=== PATIENT | male | born 1950 | race African-American/Black ===

== ENCOUNTER → 2016-08-25 | Outpatient (CLI) | payer MEDICARE ==
[~2016-08-25] MED LIST: AMIT25TA PO; AMLO10TA2 PO; CYCL10TA2 PO; DOCU100T5 PO; DOCU240C25 PO; FLUT9.9S NS; LISI-334 PO; OXYC-250 PO; PROAIR HFA8.5 GM INH
== END | disposition home or self-care (01) ==
LOC: SURGPAT 14:59
PROVIDERS: ATTEND Neurological Surgery
DX: Z01.818 Encounter for other preprocedural examination (principal)
CPT/HCPCS: 87641

== ENCOUNTER → 2016-08-28 | Outpatient (CLI) | payer MEDICARE ==
[2016-08-28 11:52] LABS: ALBUMIN 3.8 g/dL (3.4-5.0); ALBUMIN/GLOBULIN RATIO 0.8 (1.0-1.7); CALCIUM 9.4 mg/dL (8.5-10.1); CREATININE 1.4 mg/dL (0.7-1.3); GFR 61.9; POTASSIUM 4.6 mmol/L (3.5-5.1); TOTAL BILIRUBIN 0.4 mg/dL (0.2-1.0); TOTAL PROTEIN 8.5 g/dL (6.4-8.2)
[2016-08-28 11:56] LABS: BASO # 0.1 x10^3/uL (0.0-0.2); BASO % 1 % (0-3); EOS % 16 % (0-3); HEMATOCRIT 43.6 % (39.0-53.0); HEMOGLOBIN 14.3 g/dL (13.0-17.5); LYMPH # 2.2 x10^3/uL (1.0-4.8); LYMPH % 27 % (24-48); MEAN CORPUSCULAR HEMOGLOBIN 32 pg (25-35); MEAN CORPUSCULAR HGB CONC 33 g/dL (31-37); MEAN CORPUSCULAR VOLUME 98 fL (79-100); MONO % 10 % (0-9); NEUT % 46 % (31-73); PLATELET COUNT 226 x10^3/uL (140-400); RED BLOOD COUNT 4.47 x10^6/uL (4.30-5.70); RED CELL DISTRIBUTION WIDTH 13.7 % (11.5-14.5)
[2016-08-28 13:30] LABS: % BASOS 1 % (0-3); % EOS 15 % (0-5); PLT ESTIMATE ADEQUATE (ADEQUATE)
[2016-08-28 13:31] LABS: OVALOCYTES FEW
== END | disposition home or self-care (01) ==
LOC: LAB 11:11
PROVIDERS: ATTEND Neurological Surgery
DX: M48.02 Spinal stenosis, cervical region (principal)
CPT/HCPCS: 36415; 80053; 85007; 85027

== ENCOUNTER 2016-09-01 07:21 | Inpatient (IN) | payer MEDICARE ==
[2016-09-01] VITALS (10 sets, daily range): BP systolic 116–134; BP diastolic 66–83
[~2016-09-01] VITALS: Ht 182.9 cm; Wt 102.1 kg
[~2016-09-01 07:21] MED LIST changes: +BUPIVAC MPF-EPI 0.5%-1:200000 30 ML VIAL. ONE; +CEFAZOLIN 2GM PREMIX 50 ML IV PRN; +FENTANYL PF 100 MCG/2 ML VIAL. IV PRN; +GELATIN SPONGE SIZE 100. ONE; +HYDROMORPHONE 2 MG/ML VIAL. IV PRN; +IV RINGERS,LACTATED 1000ML 1,000 ML IV SCH; +LIDOCAINE 1% 1 ML SYRINGE. ID PRN; +MORPHINE SULFATE 2 MG/ML DISP.SYRIN. IV PRN; +ONDANSETRON PF 4 MG/2 ML VIAL. IV PRN; +PROCHLORPERAZINE 10 MG/2 ML VIAL. IV PRN; +THROMBIN 20,000 UNIT SPRAY.SYRN KIT TP ONE
[2016-09-01] MEDS ORDERED: BACITRACIN 50,000 UNIT in IV NORMAL SALINE 1000ML BAG 1,000 ML IRR ONE (08:00)
[2016-09-01] MEDS ORDERED: PROPOFOL 20 ML IV ONE (08:07)
[2016-09-01] MEDS ORDERED: ONDANSETRON PF 4 MG/2 ML VIAL. ONE (08:07)
[2016-09-01] MEDS ORDERED: FENTANYL PF 100 MCG/2 ML VIAL. ONE (08:07)
[2016-09-01] MEDS ORDERED: DEXAMETHASONE SOD PHOS 20 MG/5 ML VIAL. ONE (08:07)
[2016-09-01] MEDS ORDERED: PROPOFOL 50 ML IV ONE ×2 (08:07→09:54)
[2016-09-01] MEDS ORDERED: LIDOCAINE 2% 100 MG/5 ML DISP.SYRIN. ONE (08:07)
[2016-09-01] MEDS ORDERED: SUCCINYLCHOLINE 200 MG/10 ML VIAL. ONE (08:08)
[2016-09-01] MEDS ORDERED: ROCURONIUM 50 MG/5 ML VIAL. ONE (08:08)
[2016-09-01] MEDS ORDERED: REMIFENTANIL 2 MG VIAL. IV ONE (08:08)
[2016-09-01] MEDS ORDERED: PHENYLEPHRINE 10 MG/ML VIAL. ONE (08:18)
[2016-09-01] MEDS ORDERED: MIDAZOLAM HCL 2 MG/2 ML VIAL. ONE (08:22)
[2016-09-01] MEDS ORDERED: EPHEDRINE PF IN SALINE 50 MG/5 ML DISP.SYRIN. IV ONE (08:53)
[2016-09-01] MEDS ORDERED: GLYCOPYRROLATE 1 MG/5 ML VIAL. ONE (09:08)
[2016-09-01] MEDS ORDERED: NEOSTIGMINE METHYLSULFATE 5 MG/5 ML SYRINGE. ONE (09:08)
[2016-09-01] MEDS ORDERED: DESFLURANE > 120 MINUTES IH ONE (11:12)
[2016-09-01] MEDS ORDERED: CALCIUM CARBONATE 500 MG TAB.CHEW PO PRN (11:15)
[2016-09-01] MEDS ORDERED: DIPHENHYDRAMINE 50 MG/ML VIAL IV PRN (11:15)
[2016-09-01] MEDS ORDERED: FENTANYL PF 100 MCG/2 ML VIAL. IV PRN ×2 (11:15)
[2016-09-01] MEDS ORDERED: DIPHENHYDRAMINE HCL 25 MG CAPSULE PO PRN (11:15)
[2016-09-01] MEDS ORDERED: MAG HYDROX/ALUMINUM HYD/SIMETH 30 ML ORAL.SUSP PO PRN (11:15)
[2016-09-01] MEDS ORDERED: ONDANSETRON PF 4 MG/2 ML VIAL. IV PRN (11:15)
[2016-09-01] MEDS ORDERED: MAGNESIUM HYDROXIDE 2,400 MG/30 ML ORAL.SUSP. PO PRN (11:15)
[2016-09-01] MEDS ORDERED: OXYCODONE/APAP 10/325 TABLET. PO PRN (11:15)
[2016-09-01] MEDS ORDERED: ACETAMINOPHEN 325 MG TABLET. PO PRN (11:15)
[2016-09-01] MEDS ORDERED: 0.9 % SODIUM CHLORIDE 10 ML DISP.SYRIN. IV PRN (11:15)
[2016-09-01] MEDS ORDERED: ALBUTEROL SULFATE 2.5 MG/3 ML NEBU. NEB PRN (13:30)
[2016-09-01] MEDS ORDERED: DOCUSATE SODIUM 100 MG CAPSULE PO PRN (13:30)
--- NOTE | 2016-09-01 14:00 | OP ---
DATE OF SURGERY: PREOPERATIVE DIAGNOSES: Cervical spinal stenosis and herniated cervical disk, C3-C4. POSTOPERATIVE DIAGNOSES: Cervical spinal stenosis and herniated cervical disk, C3-C4. OPERATION PERFORMED: Anterior cervical microdiskectomy C3-C4 anterior cervical interbody fusion C3-C4, allograft and autograft bone anterior cervical plate C3-C4. The operation was done with EMG monitoring, fluoroscopy, and microscopic dissection as well as NIMS monitoring, motor evoked potentials, and somatosensory evoked potentials. DYNAMITE SHOOTER: Devendra Oakley MD, assisted with the surgery, assisted with the exposure, microdiskectomy, placement of plate as well as the closure. OPERATIVE INDICATIONS: In the past, the patient has undergone a 2-level ACDF at C4-C5 and C5-C6 and did well from that operation. In 05/2016, he fell and struck his head and developed difficulty with cervical myelopathy including burning in his arms as well as unsteadiness with walking. He slowly improved from that problem. On imaging studies, there was severe central canal stenosis present at C3-C4 primarily from posterior disk bulging. There was also neural foraminal stenosis below this level. Because of the severe stenosis and the symptoms that occurred with falling, I felt the safest ____ going after a cervical microdiskectomy at this level. I spoke with him about the surgery, the risks, technique and the expected postoperative course and wished to go ahead. DESCRIPTION OF PROCEDURE: Following general endotracheal anesthesia, the patient was positioned supine on the operating room table. The anterior cervical region was prepped and draped in standard fashion. TRUDY hose and AV impulse boots were applied for DVT prophylaxis. A microscope was draped. Fluoroscopy was draped and brought into field. Monitoring was established. Ancef 2 g was given less than 1 hour prior to initiation of the surgery. Using fluoroscopic guidance, incision was made from the midline around to the skin crease on the right side. I dissected down through the skin and subcutaneous tissue and dissected on the medial aspect of the sternocleidomastoid and carotid artery sheath down the anterior cervical region. There was considerable scar at the level top of the plate and I cleared the scar off this region and then worked superiorly and exposed the C3-C4 disk space without significant difficulty. I placed [place] anterior cervical retractors followed by distraction pins in the C3 and C4. I brought in the microscope at this time, I distracted disk space, I incised the anterior annulus and there was considerable degenerative change and I worked to remove multiple small fragments of disk as well as removed the endplates regions of C3 and C4. I removed the cartilaginous portion and posteriorly, I drilled the posterior spurring and I gently opened the ligament. There was a large subligamentous disk component and I removed this and then opened the posterior ligament and then I assured myself the foraminal wall wide open. I removed considerable disk material and fully decompressed the entire region. Hemostasis was excellent. I irrigated copiously. I prepared the endplate. I measured and placed a 6 mm interbody fusion cage, removed the distraction pins and put bone wax as distraction openings and then used a 20 mm plate, which I centered, ____ the previously placed plate from the previous surgery. The system I used today [employer]. I drilled in the posterior aspect of the bone and placed the initial 50 mm screw into the right side of C4 and then with plate positioning and I drilled the remaining holes and placed remaining screws. Fluoroscopically, the plate was in perfect position, screws were all locked. I irrigated copiously with antibiotic solution. I removed the retractors and I explored carefully, I assured myself of perfect hemostasis and then I closed the wound in layers with absorbable suture after irrigating copiously. Skin was closed with 4-0 subcuticular stitch. I felt the surgery went very well and there were no problems with the monitoring, again I felt the surgery went well. SEGUNDO BAUMANN MD DR: LEONORA/hossein JOB#: [id number] / [id number]
[2016-09-01] MEDS: POTASSIUM CL 20MEQ D5-0.45NACL 1,000 ML IV SCH (15:25)
[2016-09-01] MEDS: CEFAZOLIN SODIUM 1 GM in IV NORMAL SALINE 50ML 50 ML IV SCH ×2 (15:25→21:44)
[2016-09-01] MEDS: CYCLOBENZAPRINE 10 MG TABLET. PO SCH ×2 (16:30→21:42)
[2016-09-01] MEDS: PHENOL ORAL SPRAY 177ML BOTTLE. PO PRN ×3 (17:18→21:41)
[2016-09-01] MEDS ORDERED: AMITRIPTYLINE HCL 25 MG TABLET PO SCH (21:00)
[2016-09-01] MEDS: DOCUSATE SODIUM 100 MG CAPSULE PO SCH (21:42)
[2016-09-02] MEDS: POTASSIUM CL 20MEQ D5-0.45NACL 1,000 ML IV SCH (00:12)
[2016-09-02 03:10] VITALS: BP 114/81
[2016-09-02] MEDS: CEFAZOLIN SODIUM 1 GM in IV NORMAL SALINE 50ML 50 ML IV SCH (06:01)
[2016-09-02 07:00] VITALS: BP 131/81
--- NOTE | 2016-09-02 08:42 | DISCH ---
DISCHARGE INSTRUCTIONS Condition on Discharge Condition on Discharge: Stable Activity After Discharge Activity Instructions for Disc: Activity as tolerated, Avoid exertion Other activity instructions: no driving for a week Bathing Instructions: Shower-keep dressing dry Lifting Instructions after Dis: No heavy lifting, No pulling or pushing, Do not lift >10 pounds Diet after Discharge Additional Diet Restrictions: resume home diet Wound Incision Care Wound/Incision Care: Ice to area for comfort Other wound/incision instructi: may remove dressing tomorrow if dry then may shower- no soaking Contacting the after DC Call your doctor for: Concerns you may have Follow-Up Follow up with: Dr. Baumann's nurse in 2 weeks [phone] SEGUNDO BAUMANN MD Sep 02, 2016 08:42
[2016-09-02] MEDS ORDERED: DOCU-27 PO (08:47)
[2016-09-02] MEDS ORDERED: FLUTICASONE 50MCG/NASAL SPRAY 16GM BOTTLE. NS SCH (09:00)
[2016-09-02] MEDS ORDERED: AMLODIPINE BESYLATE 10 MG TABLET PO SCH (09:00)
[2016-09-02] MEDS ORDERED: LISINOPRIL 20 MG TABLET PO SCH (09:00)
[2016-09-02] MEDS: CYCLOBENZAPRINE 10 MG TABLET. PO SCH (09:36)
[2016-09-02] MEDS: DOCUSATE SODIUM 100 MG CAPSULE PO SCH (09:36)
[2016-09-02 11:00] VITALS: BP 134/89
--- NOTE | 2016-09-03 12:32 | PREOP HP ---
DATE OF SERVICE: 09/01/2016 Jaren Olivarez RN dictating for Dr. Tom Baumann. DATE OF SURGERY: 09/01/2016 HISTORY OF PRESENT ILLNESS: The patient was seen today in the office. In 2005, I performed surgery on his cervical spine with an ACDF at C4-C5 and C5-C6. He did well from that surgery. He relates that in May 2016 he passed out, fell, and hit his head. He was taken to ____ and was told that he had a concussion as well. At that time, he had difficulty with painful numbness in both of his arms combined with marked unsteadiness with walking. From that time to the present, he slowly improved. Neck pain was a problem, but he underwent epidural steroid injections in June, which gave him some temporary improvement. His current problem is severe neck pain and pain which radiates to his left arm. He notes pain in the inner scapular region and also over his left shoulder. There is numbness in the left arm and forearm along with diffuse numbness involving his left hand. He says that his gait has improved. PAST MEDICAL HISTORY: Arthritis, asthma, head and neck injury, tuberculosis, injury. PAST SURGICAL HISTORY: Hernia repair in 1968 and 1971, L4 repair in 1996, L5 repair in 1996, C5 through C7 fusion in 2006. FAMILY HISTORY: Cancer, diabetes, heart problem/disease, hypertension. SOCIAL HISTORY: He is retired. . Works out of the [employer] 3 times a week. Denies tobacco use. Does not drink alcohol, quit drinking in 1971. Drinks coffee irregularly. ALLERGIES: CIPRO. CURRENT MEDICATIONS: Albuterol, amitriptyline, amlodipine, aspirin, cyclobenzaprine, Colace, Flonase, Neurontin, lisinopril, naproxen, oxycodone, Zocor. REVIEW OF SYSTEMS: A 12-point review of systems was obtained and is noncontributory except for that mentioned above. PHYSICAL EXAMINATION: NEUROSURGERY EXAMINATION: GENERAL APPEARANCE: Alert, pleasant, in no acute distress. HEAD: Normocephalic and atraumatic. NECK AND THYROID: Lpjs-gu-uboruveo tenderness with palpation of posterior cervical region. SKIN: Warm and dry. MUSCULOSKELETAL: Cervical paraspinal muscle bulk is normal, cervical range of motion is restricted, normal range of motion of the upper extremities bilaterally. EXTREMITIES: No clubbing, cyanosis, or edema. NEUROLOGIC: Alert and oriented x 3, normal recent and remote memory, strength 5/5 in bilateral upper and lower extremities, sensory was intact to light touch in the upper and lower extremities, reflexes were present and 1+ biceps, 3+ triceps, 2+ knee jerk, absent ankle jerks, toes were unresponsive to plantar stimulation, difficulty with tandem walking. IMAGING: Reviewed. I reviewed his cervical MRI scan. On that study, his fusion is well seen exiting from C4 through C6. There is severe central canal stenosis at C3-C4. There is moderate bilateral neural foraminal stenosis at C5-C6 and C6-C7. ASSESSMENT: The patient has severe cervical spinal stenosis at C3-C4. He also has left cervical radicular problems, which could be related to issues at C5-C6 or C6-C7. At this point, my recommendation is that he undergo an anterior cervical diskectomy and fusion at C3-C4, which would deal with the cervical spinal stenosis. Following recovery from that surgery if he continues to show any left cervical radicular problems, I could operate posteriorly and decompress the nerve roots at C5-C6 and C6-C7. I feel that dealing with all of these issues at one time is too much surgery for the patient. He understands my rationale. He understands the risks associated with the surgery at C3-C4. He would like to go ahead. We will obtain medical clearance and proceed with the surgical plan. TOM BAUMANN MD DR: LEONORA/hossein JOB#: [id number] / [id number]
--- NOTE | 2016-09-04 14:44 | PATHOLOGY ---
PATHOLOGY REPORT * * * * * * * * FINAL DIAGNOSIS: Segments of fibrocartilaginous tissue and bone, cervical disc: - Degenerative changes of fibrocartilaginous tissue. Comment: There is no evidence of an acute inflammatory process or malignancy. (JPM:; d/t: 09/04/16) REPORT ELECTRONICALLY SIGNED BY: Marky Luna M.D. DATE/TIME: 09/04/2016 14:43 * * * * * * * * GROSS PATHOLOGY: Received in formalin labeled "Fermin Torres Sr and cervical disc," are multiple segments of blood-tinged, white-serrano, rubbery and gritty tissue admixed with possible bone, measuring 3.4 x 2.4 x 0.5 cm in aggregate dimensions. The tissue is submitted representatively in cassette A1, following decalcification. (TTL; 09/01/2016) INITIAL CPT CODE(S): A; 69369, 26955 Professional services performed by [facility] [place] [address] Technical services performed by [facility] at [address] [place] [address]. SPECIMEN(S) RECEIVED: A.Cervical disc CLINICAL HISTORY: Cervical stenosis PATIENT: FERMIN TORRES SR /AGE: 7 1950 (Age: 65) PATIENT #: [id number] ALT CASE #: SPECIMEN COLLECTION DATE: 09/01/2016 SPECIMEN RECEIVED DATE: 09/01/2016 [facility] - [address] [place] [address] - PHONE: [phone] * * * END OF REPORT * * *
== END 2016-09-02 12:20 | disposition home or self-care (01) | DRG 473 ==
LOC: OPSVCIP 07:21 → 4 NORTH 12:57
PROVIDERS: ADMIT Neurological Surgery; ATTEND Neurological Surgery
PROC: 4A1134G Monitoring of Peripheral Nervous Electrical Activity, Intraoperative, Percutaneous Approach (ICD-10-PCS; 2016-09-01)
PROC: 0RG1070 Fusion of Cervical Vertebral Joint with Autologous Tissue Substitute, Anterior Approach, Anterior Column, Open Approach (ICD-10-PCS; principal; 2016-09-01 08:30)
DX: M48.02 Spinal stenosis, cervical region (principal); M19.90 Unspecified osteoarthritis, unspecified site; J45.909 Unspecified asthma, uncomplicated; Z82.49 Family history of ischemic heart disease and other diseases of the circulatory system; Z83.3 Family history of diabetes mellitus
CPT/HCPCS: 76001; 88304; 88311; C1713; J0330; J0690; J1100; J2250; J2405; J2704; J2710; J3010; J3490; J7030; J7120

== ENCOUNTER → 2016-09-29 | Outpatient (CLI) | payer MEDICARE ==
[2016-09-02 11:00] VITALS: BP 134/89
[~2016-09-29] MED LIST changes: -BUPIVAC MPF-EPI 0.5%-1:200000 30 ML VIAL. ONE; -CEFAZOLIN 2GM PREMIX 50 ML IV PRN; +DOCU-27 PO; -FENTANYL PF 100 MCG/2 ML VIAL. IV PRN; -GELATIN SPONGE SIZE 100. ONE; -HYDROMORPHONE 2 MG/ML VIAL. IV PRN; -IV RINGERS,LACTATED 1000ML 1,000 ML IV SCH; -LIDOCAINE 1% 1 ML SYRINGE. ID PRN; -MORPHINE SULFATE 2 MG/ML DISP.SYRIN. IV PRN; -ONDANSETRON PF 4 MG/2 ML VIAL. IV PRN; -PROCHLORPERAZINE 10 MG/2 ML VIAL. IV PRN; -THROMBIN 20,000 UNIT SPRAY.SYRN KIT TP ONE
--- NOTE | 2016-09-29 11:46 | RAD ---
Indication postop. AP lateral and odontoid views of the cervical spine were obtained. Note is made of a previous examination June 15, 2011. Anterior fusion is noted extending from C4 through C6. There is now an additional anterior fusion seen at C3-4. There is slight lucency associated with the cephalad screw associated with the fusion extending from C4 through C6. It does not, however, appear changed substantially relative to the previous exam. There are some underlying degenerative changes in the cervical spine. The prevertebral soft tissues appear normal. An acute finding is not seen. IMPRESSION: Postop changes. No acute finding seen
== END | disposition home or self-care (01) ==
LOC: RAD 11:07
PROVIDERS: ATTEND Neurological Surgery
DX: Z01.818 Encounter for other preprocedural examination (principal); M43.22 Fusion of spine, cervical region
CPT/HCPCS: 72040

== ENCOUNTER → 2016-10-02 | Outpatient (CLI) | payer MEDICARE ==
[2016-09-02 11:00] VITALS: BP 134/89
--- NOTE | 2016-10-02 09:39 | RAD ---
PROCEDURE Cervical spine MRI without contrast. HISTORY Neck pain and bilateral upper extremity radiculopathy. TECHNIQUE Multiplanar and multi sequence magnetic resonance imaging of the cervical spine was performed without contrast. COMPARISON 08/26/2007 FINDINGS There are findings consistent with instrumented anterior spinal fusion and interbody fusion at C3 through C6. There is complete bony bridging at C4 through C6. There is deformation of the spinal cord at C3-C4 due to severe central canal stenosis, described in detail below. The posterior fossa and skullbase are unremarkable. There is no acute or subacute fracture. There is minimal anterolisthesis at the upper thoracic levels. At C2-C3, there is a diffuse disc bulge and endplate remodeling. There is mild to moderate right and mild left foraminal stenosis. At C3-C4, there is instrumented fusion. There is a broad-based posterior central disc protrusion and annular tear superimposed on a diffuse disc bulge and endplate osteophytosis. There is uncovertebral arthropathy. There is buckling of the ligamentum flavum. There is severe bilateral foraminal stenosis. There is deformation of the spinal cord with severe central canal stenosis measuring 6.0 mm in anterior-posterior dimension. There is slight increased T2 signal within the spinal cord at this level which may be due to myelomalacia. At C4-C5, there is instrumented fusion. There is endplate remodeling. There is moderate right and mild left foraminal stenosis. At C5-C6, there is instrumented fusion. There is endplate remodeling. There is severe right and moderate to severe left foraminal stenosis. At C6-C7, there is a broad-based posterior central disc protrusion superimposed on a disc bulge and endplate osteophytosis. There is uncovertebral arthropathy. There is buckling of the ligamentum flavum. There is severe right and moderate to severe left foraminal stenosis. There is mild central canal stenosis measuring 8.7 mm in anterior-posterior dimension. At C7-T1, there are bilateral posterior lateral disc protrusions superimposed on a disc bulge and endplate osteophytosis. There is uncovertebral arthropathy. There is severe bilateral foraminal stenosis. At T1-T2, there is a disc bulge and endplate remodeling. There is no stenosis. At T2-T3, there is a disc bulge and endplate remodeling. There is no stenosis. At T3-C4, there is a left paracentral to foraminal disc protrusion with slight superior extrusion. There is mild left foraminal stenosis and abutment of the left ventral aspect of the spinal canal without significant central canal stenosis. IMPRESSION 1. Multilevel degenerative change throughout the cervical spine, described in detail above. Findings are slightly increased at all levels compared to the prior study. This most significant and C3-C4, resulting in severe bilateral foraminal and central canal stenosis with cord signal change likely due to myelomalacia. There is additional significant foraminal and central canal stenosis at the aforementioned levels. 2. Instrumented fusion at C3 through C6. There is bony bridging at C4 through C6. Electronically signed by: Deborah Harris (Oct 02, 2016 09:37:45)
== END | disposition home or self-care (01) ==
LOC: MRI 14:11
PROVIDERS: ATTEND Neurological Surgery
DX: M47.892 Other spondylosis, cervical region (principal)
CPT/HCPCS: 72141

== ENCOUNTER → 2016-10-03 | Day surgery (SDC) | payer MEDICARE ==
[~2016-10-03] VITALS: Ht 182.9 cm; Wt 97.5 kg
[~2016-10-03] MED LIST changes: +0.9 % SODIUM CHLORIDE 50 ML VIAL. IJ ONE; +BACITRACIN 50,000 UNIT in IV NORMAL SALINE 1000ML BAG 1,000 ML IRR ONE; +BUPIVACAINE-EPI 0.25%-1:200000 MPF 30 ML VIAL. ONE; +BUPIVACAINE-EPI 0.5%-1:200000 50 ML VIAL. ONE; +DESFLURANE > 120 MINUTES IH ONE; +DEXAMETHASONE SOD PHOS 20 MG/5 ML VIAL. ONE; +GELATIN SPONGE SIZE 100. ONE; +GLYCOPYRROLATE 1 MG/5 ML VIAL. ONE; +HYDROmorphone 2 MG/ML VIAL IV PRN; +IV RINGERS,LACTATED 1000ML 1,000 ML IV SCH; +LIDOCAINE 1% 1 ML SYRINGE. ID PRN; +LIDOCAINE 2% 100 MG/5 ML SYRINGE. ONE; +MIDAZOLAM HCL/PF 2 MG/2 ML VIAL. ONE; +MORPHINE SULFATE 2 MG/ML DISP.SYRIN. IV PRN; +ONDANSETRON PF 4 MG/2 ML VIAL. IV PRN; +ONDANSETRON PF 4 MG/2 ML VIAL. ONE; +PHENYLEPHRINE 10 MG/ML VIAL. ONE; +PROCHLORPERAZINE 10 MG/2 ML VIAL. IV PRN; +PROPOFOL 20 ML IV ONE; +PROPOFOL 50 ML IV ONE; +REMIFENTANIL 1 MG VIAL. IV ONE; +REMIFENTANIL 2 MG VIAL. IV ONE; +ROCURONIUM 50 MG/5 ML VIAL. ONE; +THROMBIN TOPICAL 20,000 UNIT SPRAY.SYRN KIT TP ONE; +fentaNYL PF VIAL 100 MCG/2 ML VIAL IV PRN
[2016-10-03 08:07] LABS: BASO # 0.1 x10^3/uL (0.0-0.2); BASO % 1 % (0-3); EOS % 12 % (0-3); HEMATOCRIT 39.4 % (39.0-53.0); HEMOGLOBIN 13.2 g/dL (13.0-17.5); LYMPH # 1.7 x10^3/uL (1.0-4.8); LYMPH % 31 % (24-48); MEAN CORPUSCULAR HEMOGLOBIN 33 pg (25-35); MEAN CORPUSCULAR HGB CONC 34 g/dL (31-37); MEAN CORPUSCULAR VOLUME 97 fL (79-100); MONO % 10 % (0-9); NEUT % 47 % (31-73); PLATELET COUNT 221 x10^3/uL (140-400); RED BLOOD COUNT 4.06 x10^6/uL (4.30-5.70); RED CELL DISTRIBUTION WIDTH 13.6 % (11.5-14.5); WHITE BLOOD COUNT 5.5 x10^3/uL (4.0-11.0)
[2016-10-03 08:13] LABS: CALCIUM 8.6 mg/dL (8.5-10.1); CREATININE 1.4 mg/dL (0.7-1.3); GFR 61.9
--- NOTE | 2016-10-03 12:21 | HP ---
ADMIT DATE: 10/03/2016 HISTORY OF PRESENT ILLNESS: The patient is a pleasant 65-year-old man who underwent an extension of his previous fusion at C3-C4 approximately a month ago. He said that he did very well from that operation, but 3 or 4 days ago, he was ____ up and developed acutely a shooting pain in his arms and his legs began to feel unsteady. Currently, he notes a burning pain in both of his arms. He says he felt as though he is unsteady when he walks. He is also developing some shooting pains from his neck into his shoulder and arms. CURRENT MEDICATIONS: Albuterol, amitriptyline, amlodipine, aspirin, Flexeril, Colace, Flonase, Neurontin, lisinopril, naproxen, oxycodone, and Zocor. PAST MEDICAL HISTORY: Arthritis, asthma and neck injury. ALLERGIES: CIPRO. PAST SURGICAL HISTORY: Hernia repair, lumbar surgery, cervical surgery as mentioned above. FAMILY HISTORY: Cancer, diabetes, heart disease, hypertension. SOCIAL HISTORY: , retired, does not smoke, does not drink alcohol. REVIEW OF SYSTEMS: A 12-point review of systems was performed and is noncontributory except that mentioned above. PHYSICAL EXAMINATION: BACK: Figx-va-fvifelod tenderness with palpation of posterior cervical region. GENERAL: He is alert and pleasant, in no acute distress. SKIN: Warm and dry. MUSCULOSKELETAL: Restricted range of motion of the cervical spine. Normal range of motion of the upper extremities bilaterally. NEUROLOGIC: Alert and oriented x 3. Strength is 5/5 in the upper extremities and 4+/5 in both lower extremities. Sensory was intact to light touch in the upper and lower extremities. He was not hyperreflexic. He did have unsteady gait. IMAGING: I reviewed plain cervical spine films, which I thought looked quite good with fusion extending up to C3-C4. I also reviewed a cervical MRI scan showing severe stenosis at C3-C4. ASSESSMENT AND PLAN: He has had a recent deterioration in his condition. The MRI scan shows severe stenosis at C3-C4. I spoke with him about reoperation at C3-C4 to decompress this region. He understood the surgery and the risks and the expected postoperative course. He would like to go ahead. SEGUNDO BAUMANN MD DR: Pete JOB#: [id number] / [id number]
[2016-10-03 13:46] VITALS: BP 135/82
--- NOTE | 2016-10-04 15:39 | PDOC2 ---
NEUROLOGY CONSULT Date of Admission Date of Admission DATE: 10/04/16 TIME: 15:35 Reason for Consult Reason for Consult: 10-04-16 Found this patient's name in Neurology consult list about 6:00 pm on 10/03/16, but Neurology was not paged or called for consultation. I was unable to locate patient after seeing his name in our list. [facility] did not have this patient either. Current Medications Current Medications Current Medications Ondansetron HCl (Zofran) 4 mg PRN Q6HRS PRN IV NAUSEA/VOMITING; Start 10/03/16 at 07:00; Stop 10/03/16 at 18:02; Status DC Fentanyl Citrate (Fentanyl 2ml Vial) 25 mcg PRN Q5MIN PRN IV MILD PAIN Last administered on 10/03/16t 13:03; Start 10/03/16 at 07:00; Stop 10/03/16 at 18:02 ; Status DC Fentanyl Citrate (Fentanyl 2ml Vial) 50 mcg PRN Q5MIN PRN IV MODERATE PAIN; Start 10/03/16 at 07:00; Stop 10/04/16 at 06:59; Status DC Morphine Sulfate 1 mg 1 mg PRN Q10MIN PRN IV SEVERE PAIN; Start 10/03/16 at 07: 00; Stop 10/03/16 at 18:02; Status DC Lactated Ringer's (Iv Lactated Ringers) 1,000 ml @ 30 mls/hr Q24H IV ; Start at 07:00; Stop 10/03/16 at 18:59; Status Cancel Lidocaine HCl 2 ml PRN 1X PRN ID PRIOR TO IV START; Start 10/03/16 at 07:00; Stop 10/03/16 at 18:02; Status DC Hydromorphone HCl (Dilaudid) 0.5 mg PRN Q10MIN PRN IV SEV PAIN, Second choice; Start 10/03/16 at 07:00; Stop 10/03/16 at 18:02; Status DC Prochlorperazine Edisylate 5 mg 5 mg PACU PRN PRN IV NAUSEA, MRX1; Start at 07:00; Stop 10/03/16 at 18:02; Status DC Lactated Ringer's 1,000 ml @ 30 mls/hr Q24H IV ; Start 10/02/16 at 16:30; Status Cancel Lactated Ringer's 1,000 ml @ 30 mls/hr Q24H IV Last administered on 10/03/16 07:36; Start 10/02/16 at 16:30; Stop 10/03/16 at 18:02; Status DC Bacitracin 73800 unit/Sodium Chloride 1,000 ml @ 1,000 mls/hr 1X PERIOP ONCE IRR Last administered on 10/03/16 09:44; Start 10/03/16 at 06:00; Stop at 06:59; Status DC Cefazolin Sodium/ Dextrose (Ancef 2gm Premix) 50 ml @ 100 mls/hr 1X PREOP PRN IV PRIOR TO PROCEDURE Last administered on 10/03/16 09:22; Start 10/03/16 at 06 :00; Stop 10/03/16 at 18:05; Status DC Gelatin (Gelfoam Size 100) 1 each STK-MED ONCE .ROUTE Last administered on 09:44; Start 10/03/16 at 07:02; Stop 10/03/16 at 07:03; Status DC Thrombin 20,000 unit STK-MED ONCE TP Last administered on 10/03/16 09:44; Start 10/03/16 at 07:02; Stop 10/03/16 at 07:03; Status DC Bupivacaine HCl/ Epinephrine Bitart (Sensorcaine-Epi 0.25%-1:910012 Mpf) 30 ml STK-MED ONCE .ROUTE Last administered on 10/03/16 09:44; Start 10/03/16 at 07: 07; Stop 10/03/16 at 07:08; Status DC Dexamethasone Sodium Phosphate (Decadron) 20 mg STK-MED ONCE .ROUTE ; Start at 08:14; Stop 10/03/16 at 08:15; Status DC Ondansetron HCl 4 mg 4 mg STK-MED ONCE .ROUTE ; Start 10/03/16 at 08:14; Stop at 08:15; Status DC Propofol 50 ml @ As Directed STK-MED ONCE IV ; Start 10/03/16 at 08:14; Stop at 08:15; Status DC Propofol (Diprivan) 20 ml @ As Directed STK-MED ONCE IV ; Start 10/03/16 at 08: 14; Stop 10/03/16 at 08:15; Status DC Lidocaine HCl (Lidocaine HCl 2% Abboject) 100 mg STK-MED ONCE .ROUTE ; Start at 08:14; Stop 10/03/16 at 08:15; Status DC Midazolam HCl (Versed) 2 mg STK-MED ONCE .ROUTE ; Start 10/03/16 at 08:14; Stop 10/03/16 at 08:15; Status DC Remifentanil HCl (Ultiva) 2 mg STK-MED ONCE IV ; Start 10/03/16 at 08:14; Stop 10/03/16 at 08:15; Status DC Rocuronium [place] (Zemuron) 50 mg STK-MED ONCE .ROUTE ; Start 10/03/16 at 08:14 ; Stop 10/03/16 at 08:15; Status DC Sodium Chloride (Sodium Chloride) 50 ml STK-MED ONCE IJ ; Start 10/03/16 at 08: 17; Stop 10/03/16 at 08:18; Status DC Phenylephrine HCl (Eliazar-Synephrine Inj) 10 mg STK-MED ONCE .ROUTE ; Start at 08:17; Stop 10/03/16 at 08:18; Status DC Bupivacaine HCl/ Epinephrine Bitart (Marcaine-Epi 0.5%-1:502970) 50 ml STK-MED ONCE .ROUTE ; Start 10/03/16 at 08:30; Stop 10/03/16 at 08:31; Status DC Glycopyrrolate 1 mg 1 mg STK-MED ONCE .ROUTE ; Start 10/03/16 at 09:16; Stop at 09:17; Status DC Propofol (Diprivan) 50 ml @ As Directed STK-MED ONCE IV ; Start 10/03/16 at 09: 49; Stop 10/03/16 at 09:50; Status DC Remifentanil HCl (Ultiva) 1 mg STK-MED ONCE IV ; Start 10/03/16 at 12:03; Stop 10/03/16 at 12:04; Status DC Desflurane (Suprane) 90 ml STK-MED ONCE IH ; Start 10/03/16 at 12:45; Stop 10/03 at 12:46; Status DC Active Scripts Active Reported Percocet 10-325 Mg Tablet (Oxycodone/Acetaminophen) 1 Each Tablet 1 Tab PO PRN Q6HRS PRN Lisinopril 20 Mg Tablet 20 Mg PO DAILY Flonase Allergy Relief (Fluticasone Propionate) 9.9 Ml [place].susp 2 Sprays NS DAILY Stool Softener (Docusate Calcium) 240 Mg Capsule 240 Mg PO Cyclobenzaprine Hcl 10 Mg Tablet 10 Mg PO TID Amlodipine Besylate 10 Mg Tablet 10 Mg PO DAILY Amitriptyline Hcl 25 Mg Tablet 25 Mg PO HS Proair Hfa Inhaler (Albuterol Sulfate) 8.5 Gm Hfa.aer.ad 1 Puff INH PRN Q6HRS PRN Allergies Allergies: Coded Allergies: ciprofloxacin (Verified Allergy, Intermediate, Swelling, 10/03/16) BLISTERS OF PENIS Vitals VITALS Vital Signs Date Time Temp Pulse Resp B/P Pulse Ox O2 Delivery O2 Flow Rate FiO2 10/03/16 13:46 112 13 135/82 97 Nasal Cannula 2 10/03/16 12:46 97.4 97.4 Labs Labs Laboratory Tests Test 10/03/16 07:25 10/03/16 13:16 White Blood Count 5.5x10^3/uL (4.0-11.0) Red Blood Count 4.06x10^6/uL (4.30-5.70) Hemoglobin 13.2g/dL (13.0-17.5) Hematocrit 39.4% (39.0-53.0) Mean Corpuscular Volume 97fL (79-100) Mean Corpuscular Hemoglobin 33pg (25-35) Mean Corpuscular Hemoglobin Concent 34g/dL (31-37) Red Cell Distribution Width 13.6% (11.5-14.5) Platelet Count 221x10^3/uL (140-400) Neutrophils (%) (Auto) 47% (31-73) Lymphocytes (%) (Auto) 31% (24-48) Monocytes (%) (Auto) 10% (0-9) Eosinophils (%) (Auto) 12% (0-3) Basophils (%) (Auto) 1% (0-3) Neutrophils # (Auto) 2.6x10^3uL (1.8-7.7) Lymphocytes # (Auto) 1.7x10^3/uL (1.0-4.8) Monocytes # (Auto) 0.5x10^3/uL (0.0-1.1) Eosinophils # (Auto) 0.6x10^3/uL (0.0-0.7) Basophils # (Auto) 0.1x10^3/uL (0.0-0.2) Nasal Screen MRSA (PCR) Negative (Negative) Sodium Level 140mmol/L (136-145) Potassium Level 4.0mmol/L (3.5-5.1) Chloride Level 104mmol/L (98-107) Carbon Dioxide Level 29mmol/L (21-32) Anion Gap 7 (6-14) Blood Urea Nitrogen 15mg/dL (8-26) Creatinine 1.4mg/dL (0.7-1.3) Estimated GFR (Cockcroft-Gault) 61.9 Glucose Level 103mg/dL (70-99) Calcium Level 8.6mg/dL (8.5-10.1) Glucose (Fingerstick) 114mg/dL (70-99) WAI SEAY MD Oct 04, 2016 15:39
--- NOTE | 2016-10-05 13:48 | PATHOLOGY ---
PATHOLOGY REPORT * * * * * * * * FINAL DIAGNOSIS: "Cervical granulation tissue," removal: - Fragments of fibrocartilage with degenerative changes. - Portions of granulation tissue and synovial tissue with mild chronic inflammation and foreign body giant cells. - Fragments of unremarkable bone. (ZACK:; d/t: 10/05/16) REPORT ELECTRONICALLY SIGNED BY: Chayito Simmons M.D. DATE/TIME: 10/05/2016 13:48 * * * * * * * * GROSS PATHOLOGY: Received in formalin labeled "Fermin Torres, cervical granulation tissue," are several pieces of glistening, fibrous tissue measuring 2.0 x 1.5 x 0.2 cm in aggregate dimensions. The tissue is submitted entirely in cassette A1. (SNA; 10/04/2016) INITIAL CPT CODE(S): A; 71102 Professional services performed by [facility] [place] [address] Technical services performed by [facility] at [address] [place] [address], [facility] [address], [place] [address]. SPECIMEN(S) RECEIVED: A.Cervical granulation tissue CLINICAL HISTORY: Cervical stenosis, myelopathy PATIENT: FERMIN TORRES SR /AGE: 7 1950 (Age: 65) PATIENT #: [id number] ALT CASE #: SPECIMEN COLLECTION DATE: 10/03/2016 SPECIMEN RECEIVED DATE: 10/03/2016 [facility] - [address] [place] [address] - PHONE: [phone] * * * END OF REPORT * * *
--- NOTE | 2016-10-10 23:21 | OP ---
DATE OF SURGERY: 10/03/2016 PREOPERATIVE DIAGNOSIS: Cervical spinal stenosis, C3-C4. POSTOPERATIVE DIAGNOSIS: Cervical spinal stenosis, C3-C4. OPERATION PERFORMED: Anterior cervical microdiscectomy, C3-C4; anterior cervical interbody fusion, C3-C4, with allograft and autograft bone anterior cervical plate, C3-C4. The operation was done with multimodality electrophysiologic monitoring including SSEP, motor-evoked potentials, and NIMS monitoring. SURGEON: Tom Baumann M.D. ACID LEVELER: Devendra Oakley MD, assisted with the exposure, the revision of the fusion, which included removal of the previously placed plate at C3-C4, removal of the interbody fusion cage at this level, decompression at C3-C4, combined with placement of a new interbody fusion cage and anterior plate. OPERATIVE INDICATIONS: The patient is a very pleasant 65-year-old man who, about a month ago, underwent an anterior cervical microdiscectomy at C3-C4 and did well from that surgery. He had previously undergone surgery from C4 through C7 in years past and had done well from the operation. He developed stenosis at C3-C4, and underwent an uncomplicated operation and did well. He said that beginning a few days before I saw him, he had tilted his head back to shave and noticed some tingling sensation, which had radiated into his body and then noticed problems with unsteadiness, which was progressive. On imaging studies, he was found to have developed scarring posterior to the interbody fusion cage, which extended into the spinal canal and associated with spinal stenosis. I recommended reoperation at C3-C4 with revision of his previous fusion. I spoke with him about the surgery and the risks involved. He understood and he wished to go ahead. DESCRIPTION OF PROCEDURE: Following general endotracheal anesthesia, the patient was positioned supine on the operating room table. The anterior cervical region was then prepped and draped in the standard fashion. TRUDY hose and AV impulse boots were applied for DVT prophylaxis. The microscope was draped, fluoroscopy was draped and brought into field. Monitoring was established. Ancef 2 grams given less than 1 hour prior to initiation of the surgery. Using a fluoroscopic guidance, his previous incision was reopened from the midline around to the right side in the skin crease. I dissected down through the skin and subcutaneous tissue and I dissected around the medial aspect of the sternocleidomastoid and carotid artery sheath down the anterior cervical vertebral bodies. I gently worked through dense scarring, exposed the plate and gently reflected the trachea and esophagus contralaterally. I removed the previous plate and placed 14-mm pins in C3 and C4. I used the anterior cervical retractor with the blades wedge in the longus colli muscle and I had an excellent exposure. I distracted the disc space. I freed up and removed the interbody fusion cage and posterior to this, there was scar tissue, which extended posteriorly into the canal. I distracted the region further. I removed the scar tissue and worked gently to fully decompress the entire region. The dura moved posteriorly up against the inner aspect of the above. I scraped away any residual cartilaginous endplate. I measured and placed an interbody fusion cage, which was gently tapped into position, was packed with allograft and autograft bone. The autograft bone, I obtained from the drilling down some of the anterior and posterior spurring and using this to augment the allograft. Hemostasis was perfect at the time of the cage placement. I placed an anterior plate and placed screws, which were locked. I removed the retractor and irrigated copiously. I closed the wound with absorbable suture. The skin was closed with 4-0 subcuticular stitch. The monitoring improved with the decompression of the cord, motor evoked potentials improved. I was quite pleased with the surgery. In recovery room, the patient was slow to awake, but when he did awake, he was noted to have developed weakness in his left side along with slurred speech. I felt that this was an impending stroke and in that he was freshly postoperative. I felt that the patient should be transferred to [facility] where appropriate interventional treatment could be performed. This was organized and the patient was transferred to for further treatment. TOM BAUMANN MD DR: LEONORA/hossein JOB#: [id number] / [id number] CARMEN
== END | disposition home or self-care (01) ==
LOC: OPSVCIP 06:04 → SURG 06:04 → UNDOADMIN 06:04 → EDSTATUS 08:30
PROVIDERS: ATTEND Neurological Surgery
DX: M48.02 Spinal stenosis, cervical region (principal); I10 Essential (primary) hypertension; K21.9 Gastro-esophageal reflux disease without esophagitis; M19.90 Unspecified osteoarthritis, unspecified site
CPT/HCPCS: 20930; 20936; 22551; 22853; 36415; 72141; 76000; 80048; 82947; 85027; 87641; 88304; C1713; J0690; J1100; J2250; J2405; J2704; J3010; J3490; J7030; J7120

== ENCOUNTER → 2016-10-13 | Outpatient (CLI) | payer MEDICARE ==
[2016-10-03 13:46] VITALS: BP 135/82
[~2016-10-13] MED LIST changes: -0.9 % SODIUM CHLORIDE 50 ML VIAL. IJ ONE; -BACITRACIN 50,000 UNIT in IV NORMAL SALINE 1000ML BAG 1,000 ML IRR ONE; -BUPIVACAINE-EPI 0.25%-1:200000 MPF 30 ML VIAL. ONE; -BUPIVACAINE-EPI 0.5%-1:200000 50 ML VIAL. ONE; -DESFLURANE > 120 MINUTES IH ONE; -DEXAMETHASONE SOD PHOS 20 MG/5 ML VIAL. ONE; -GELATIN SPONGE SIZE 100. ONE; -GLYCOPYRROLATE 1 MG/5 ML VIAL. ONE; -HYDROmorphone 2 MG/ML VIAL IV PRN; -IV RINGERS,LACTATED 1000ML 1,000 ML IV SCH; -LIDOCAINE 1% 1 ML SYRINGE. ID PRN; -LIDOCAINE 2% 100 MG/5 ML SYRINGE. ONE; -MIDAZOLAM HCL/PF 2 MG/2 ML VIAL. ONE; -MORPHINE SULFATE 2 MG/ML DISP.SYRIN. IV PRN; -ONDANSETRON PF 4 MG/2 ML VIAL. IV PRN; -ONDANSETRON PF 4 MG/2 ML VIAL. ONE; -PHENYLEPHRINE 10 MG/ML VIAL. ONE; -PROCHLORPERAZINE 10 MG/2 ML VIAL. IV PRN; -PROPOFOL 20 ML IV ONE; -PROPOFOL 50 ML IV ONE; -REMIFENTANIL 1 MG VIAL. IV ONE; -REMIFENTANIL 2 MG VIAL. IV ONE; -ROCURONIUM 50 MG/5 ML VIAL. ONE; -THROMBIN TOPICAL 20,000 UNIT SPRAY.SYRN KIT TP ONE; -fentaNYL PF VIAL 100 MCG/2 ML VIAL IV PRN
--- NOTE | 2016-10-13 13:29 | RAD ---
Indication status post anterior fusion. AP and lateral views of the cervical spine were obtained. Note is made of the operative intervention 10/03/2016 There are 2 fusion plates. 1 extends from C3 to C4 and a second from C4 through C6. No acute bony finding is seen. There is prevertebral soft tissue swelling which may be related to the recent operative intervention. Underlying infection or hematoma are not excluded accounting for the soft tissue swelling. Clinical correlation advised. IMPRESSION: Postop changes. Prevertebral soft tissue swelling likely related to the recent operative intervention
== END | disposition home or self-care (01) ==
LOC: RAD 13:03
PROVIDERS: ATTEND Neurological Surgery
DX: M43.22 Fusion of spine, cervical region (principal)
CPT/HCPCS: 72040

== ENCOUNTER → 2016-11-15 | Outpatient (CLI) | payer MEDICARE ==
[2016-10-03 13:46] VITALS: BP 135/82
--- NOTE | 2016-11-15 12:07 | RAD ---
Indication postop. Cervical fusion 10/24/2016. AP and lateral views of the cervical spine were obtained. Note is made of the operative intervention 10/03/2016. Plain films are compared to a study 10/13/2016. 2. Anterior fusion plates are again seen. One extends from C3 to C4 similar to the previous exam. A second extends from C4 through C6. The appearance is similar to the previous exam. A significant change is not seen. The prevertebral soft tissues are normal IMPRESSION: Anterior fusion. No acute finding. No unexpected finding seen. No significant change
== END | disposition home or self-care (01) ==
LOC: RAD 11:28
PROVIDERS: ATTEND Neurological Surgery
DX: M43.22 Fusion of spine, cervical region (principal)
CPT/HCPCS: 72040

== ENCOUNTER 2017-02-21 07:58 | Observation (INO) | payer MEDICARE ==
[~2017-02-21] VITALS: Ht 182.9 cm; Wt 99.6 kg
[~2017-02-21 07:58] MED LIST changes: +DOCU-109 PO; -DOCU-27 PO; -DOCU240C25 PO; -OXYC-250 PO; +OXYC-328 PO; +[UNRECOGNIZED DRUG - CODE] PO
[2017-02-21] MEDS ORDERED: IV NORMAL SALINE 1000ML BAG 1,000 ML IV SCH (08:01)
[2017-02-21] MEDS ORDERED: 0.9 % SODIUM CHLORIDE 10 ML DISP.SYRIN. IV PRN (08:15)
[2017-02-21] MEDS ORDERED: ASPIRIN CHEWABLE 81 MG TABLET. PO ONE (08:15)
--- NOTE | 2017-02-21 08:16 | PHYS DOC ---
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 Patient is not gone to the gym and some time and decided to workout this morning. He told me that he was overexerting himself when he became lightheaded and dizzy. The disease landed him here in the ER as he was continually hypertensive for EMS upon arrival. Patient He was about to pass out with some tunnel vision and generalized weakness. He denies any specific shortness of breath, chest pain or other symptoms. He denies any nausea, vomiting, diarrhea or other focal neurologic deficits. He denies any dysarthria, dysphasia, changes in vision other than the tunnel vision. Patient has not had a symptom like this in the past. Patient admits that with his prior stroke he woke in the morning with body tingling and weakness in his right lower leg. She denies any specific trauma, travel S at the country or change in medications. Patient has had surgery on his cervical spine C3-C4 multiple occasions. The patient was hypotensive upon EMS arrival and documented on their transportation, patient was not hypotensive upon our initial evaluation. My syncope differential includes but not limited to: Neurally mediated vasovagal syncope, situational syncope, cardiac sinus syncope , orthostatic hypertension, medications, psychiatric interventions, neurologic syncope, cardiogenic syncopal B, to include organic heart disease congestive heart failure, cardiac dysrhythmia, seizure disorder, stroke or transient ischemic attack, bradycardia dysrhythmias, tachycardia dysrhythmias, PT, V. fib V. fib, cardiac abnormalities like first degree secondary third-degree AV blocks , prolonged QT, hypertrophic Chetan myopathy, severe pulmonic stenosis, pulmonary arterial hypertension, atrial myxomas, aortic stenosis, valvular failure, alcohol consumption, adrenal insufficiency, drug effects from things like antidepressants, antihypertensive agents like beta blockers, vasodilators including calcium channel blockers and nitrates, autonomic insufficiency. Primary physician according this patient is at . Though once pushed he admits he is Dr. Wojciech Li Email Designer note: Internal medicine physician Dr. Li Email Designer called at of the service service 9:31 AM Consult called back at Discussed the case I presented and they agreed with admission. Time of acceptance Review of Systems Review of Systems Constitutional: Denies fever or chills [] Eyes: Denies change in visual acuity, redness, or eye pain [] HENT: Denies nasal congestion or sore throat [] Respiratory: Denies cough or shortness of breath [] Cardiovascular: No additional information not addressed in HPI [] GI: Denies abdominal pain, nausea, vomiting, bloody stools or diarrhea [] : Denies dysuria or hematuria [] Musculoskeletal: Denies back pain or joint pain [] Integument: Denies rash or skin lesions [] Neurologic: Patient specifically only has generalized weakness with no sensory or weakness changes in any focal deficit Endocrine: Denies polyuria or polydipsia [] Current Medications Current Medications Current Medications Medications (Trade) Dose Ordered Sig/Diana Start Time Stop Time Status Last Admin Dose Admin Aspirin (Children'S Aspirin) 324 mg 1X ONCE 02/21/17 08:15 02/21/17 08:16 DC 02/21/17 08:28 324 MG Sodium Chloride (Normal Saline Flush) 10 ml QSHIFT PRN 02/21/17 08:15 02/21/17 08:29 10 ML Allergies Allergies Allergies Coded Allergies Type Severity Reaction Last Updated Verified ciprofloxacin Allergy Intermediate Swelling 10/03/16 Yes Physical Exam Physical Exam Vital signs recorded on the chart patient noted to be hypotensive, only on EMS evaluation. Here in our evaluation he was not hypotensive. He was normotensive Constitutional: Well developed, well nourished, no acute distress, non-toxic appearance. [] HENT: Normocephalic, atraumatic, bilateral external ears normal, dry mucous membranes, no oral exudates, nose normal. [] Eyes: PERRLA, EOMI, conjunctiva normal, no discharge. [] Neck: Normal range of motion, no tenderness, supple, no stridor. [] Cardiovascular:Heart rate regular rhythm, no murmur [] Lungs & Thorax: Bilateral breath sounds clear to auscultation [] Abdomen: Bowel sounds normal, soft, no tenderness, no masses, no pulsatile masses. [] Skin: Warm, dry, no erythema, no rash. [] Back: No tenderness, no CVA tenderness. [] Extremities: No tenderness, no cyanosis, no clubbing, ROM intact, no edema. [] Neurologic: Alert and oriented X 3, normal motor function, normal sensory function, no focal deficits noted. [] Psychologic: Affect normal, judgement normal, mood normal. [] Upon arrival patient's stroke scale is 0. 1a. Level of consciousness: 0 = Alert; keenly responsive. 1 = Not alert; but arousable by minor stimulation to obey, answer, or respond. 2 = Not alert; requires repeated stimulation to attend, or is obtunded and requires strong or painful stimulation to make movements (not stereotyped). 3 = Responds only with reflex motor or autonomic effects or totally unresponsive , flaccid, and areflexic. 1b. LOC questions: 0 = Answers both questions correctly. 1 = Answers one question correctly. 2 = Answers neither question correctly. 1c. LOC commands: 0 = Performs both tasks correctly. 1 = Performs one task correctly. 2 = Performs neither task correctly. 2. Best gaze: 0 = Normal. 1 = Partial gaze palsy; gaze is abnormal in one or both eyes, but forced deviation or total gaze paresis is not present. 2 = Forced deviation, or total gaze paresis not overcome by the oculocephalic maneuver. 3. Visual: 0 = No visual loss. 1 = Partial hemianopia. 2 = Complete hemianopia. 3 = Bilateral hemianopia (blind including cortical blindness). 4. Facial palsy: 0 = Normal symmetrical movements. 1 = Minor paralysis (flattened nasolabial fold, asymmetry on smiling). 2 = Partial paralysis (total or near-total paralysis of lower face). 3 = Complete paralysis of one or both sides (absence of facial movement in the upper and lower face). 5. Motor arm: 0 = No drift; limb holds 90 (or 45) degrees for full 10 seconds. 1 = Drift; limb holds 90 (or 45) degrees, but drifts down before full 10 seconds ; does not hit bed or other support. 2 = Some effort against gravity; limb cannot get to or maintain (if cued) 90 ( or 45) degrees, drifts down to bed, but has some effort against gravity. 3 = No effort against gravity; limb falls. 4 = No movement. UN = Amputation or joint fusion, explain: 5a. Left arm 0 5b. Right arm 0 6. Motor le = No drift; leg holds 30-degree position for full 5 seconds. 1 = Drift; leg falls by the end of the 5-second period but does not hit bed. 2 = Some effort against gravity; leg falls to bed by 5 seconds, but has some effort against gravity. 3 = No effort against gravity; leg falls to bed immediately. 4 = No movement. UN = Amputation or joint fusion, explain: 6a. Left leg 0 6b. Right leg 0 7. Limb ataxia: 0 = Absent. 1 = Present in one limb. 2 = Present in two limbs. UN = Amputation or joint fusion 8. Sensory: 0 = Normal; no sensory loss. 1 = Xujf-mu-dxlpjils sensory loss; patient feels pinprick is less sharp or is dull on the affected side; or there is a loss of superficial pain with pinprick , but patient is aware of being touched. 2 = Severe to total sensory loss; patient is not aware of being touched in the face, arm, and leg. 9. Best language: 0 = No aphasia; normal. 1 = Ocfx-gc-mxtblsmv aphasia; some obvious loss of fluency or facility of comprehension, without significant limitation on ideas expressed or form of expression. Reduction of speech and/or comprehension, however, makes conversation about provided materials difficult or impossible. For example, in conversation about provided materials, examiner can identify picture or naming card content from patient's response. 2 = Severe aphasia; all communication is through fragmentary expression; great need for inference, questioning, and guessing by the listener. Range of information that can be exchanged is limited; listener carries burden of communication. Examiner cannot identify materials provided from patient response. 3 = Mute, global aphasia; no usable speech or auditory comprehension. 10. Dysarthria: 0 = Normal. 1 = Ovcb-vj-yvrrxend dysarthria; patient slurs at least some words and, at worst , can be understood with some difficulty. 2 = Severe dysarthria; patient's speech is so slurred as to be unintelligible in the absence of or out of proportion to any dysphasia, or is mute/anarthric. UN = Intubated or other physical barrier, explain: 11. Extinction and inattention (formerly neglect): 0 = No abnormality. 1 = Visual, tactile, auditory, spatial, or personal inattention or extinction to bilateral simultaneous stimulation in one of the sensory modalities. 2 = Profound renee-inattention or extinction to more than one modality; does not recognize own hand or orients to only one side of space. Current Patient Data Vital Signs Vital Signs Date Time Temp Pulse Resp B/P (MAP) Pulse Ox O2 Delivery O2 Flow Rate FiO2 02/21/17 07:58 98.1 66 18 112/64 (80) 96 Room Air 98.1 Lab Values Laboratory Tests Test 02/21/17 08:15 White Blood Count 7.7 x10^3/uL (4.0-11.0) Red Blood Count 4.20 x10^6/uL (4.30-5.70) L Hemoglobin 13.9 g/dL (13.0-17.5) Hematocrit 40.3 % (39.0-53.0) Mean Corpuscular Volume 96 fL (79-100) Mean Corpuscular Hemoglobin 33 pg (25-35) Mean Corpuscular Hemoglobin Concent 34 g/dL (31-37) Red Cell Distribution Width 13.5 % (11.5-14.5) Platelet Count 225 x10^3/uL (140-400) Neutrophils (%) (Auto) 61 % (31-73) Lymphocytes (%) (Auto) 28 % (24-48) Monocytes (%) (Auto) 7 % (0-9) Eosinophils (%) (Auto) 4 % (0-3) H Basophils (%) (Auto) 1 % (0-3) Neutrophils # (Auto) 4.7 x10^3uL (1.8-7.7) Lymphocytes # (Auto) 2.1 x10^3/uL (1.0-4.8) Monocytes # (Auto) 0.5 x10^3/uL (0.0-1.1) Eosinophils # (Auto) 0.3 x10^3/uL (0.0-0.7) Basophils # (Auto) 0.1 x10^3/uL (0.0-0.2) Sodium Level 140 mmol/L (136-145) Potassium Level 3.7 mmol/L (3.5-5.1) Chloride Level 103 mmol/L (98-107) Carbon Dioxide Level 30 mmol/L (21-32) Anion Gap 7 (6-14) Blood Urea Nitrogen 15 mg/dL (8-26) Creatinine 1.5 mg/dL (0.7-1.3) H Estimated GFR (Cockcroft-Gault) 57.0 Glucose Level 143 mg/dL (70-99) H Calcium Level 8.8 mg/dL (8.5-10.1) Magnesium Level 2.2 mg/dL (1.8-2.4) Total Bilirubin 0.2 mg/dL (0.2-1.0) Direct Bilirubin 0.1 mg/dL (0.0-0.2) Aspartate Amino Transferase (AST) 20 U/L (15-37) Alanine Aminotransferase (ALT) 39 U/L (16-63) Alkaline Phosphatase 69 U/L (46-116) Creatine Kinase 341 U/L (39-308) H Creatine Kinase MB (Mass) 2.6 ng/mL (0.0-3.6) Creatine Kinase MB Relative Index 0.8 % (0-4) Troponin I Quantitative < 0.017 ng/mL (0.000-0.055) XE-Ucs-V-Type Natriuretic Peptide 33 pg/mL (0-124) Total Protein 7.7 g/dL (6.4-8.2) Albumin 3.6 g/dL (3.4-5.0) Lipase 109 U/L (73-393) Thyroid Stimulating Hormone (TSH) 3.126 uIU/mL (0.358-3.74) Laboratory Tests 02/21/17 08:15 Laboratory Tests 02/21/17 08:15 EKG EKG []Patient EKG timed 8:[address] Ramirez heart rate of 70 which is normal sinus rhythm no ST segment or T-wave changes consistent with acute coronary event. Patient's ID interval was 188 which is normal patient's QRS width is 100 which is normal QTC is 443 which is normal. Radiology/Procedures Radiology/Procedures [] [facility] [address] [place] [address] IMAGING REPORT Signed PATIENT: SAMIRA LEDESMA ACCOUNT: [id number] : 1950 LOCATION: ER AGE: 66 SEX: M EXAM STATUS: PRE ER ORD. PHYSICIAN: ALKA RAMIREZ MD REASON: syncope PROCEDURE: PORTABLE CHEST 1V Portable chest, 02/21/2017: History: Syncope Comparison is made to a study from 06/21/2011. The heart size and pulmonary vascularity are normal. The lungs are clear. There is no evidence of pleural fluid. IMPRESSION: No acute cardiopulmonary abnormality is detected. DICTATED and SIGNED BY: SANDRITA SHOOK MD DATE: 02/21/17815 CC: ALKA RAMIREZ MD; VEENA LI MD ~ Course & Med Decision Making Course & Med Decision Making Pertinent Labs and Imaging studies reviewed. (See chart for details) My syncope differential includes but not limited to: Neurally mediated vasovagal syncope, situational syncope, cardiac sinus syncope , orthostatic hypertension, medications, psychiatric interventions, neurologic syncope, cardiogenic syncopal B, to include organic heart disease congestive heart failure, cardiac dysrhythmia, seizure disorder, stroke or transient ischemic attack, bradycardia dysrhythmias, tachycardia dysrhythmias, PT, V. fib V. fib, cardiac abnormalities like first degree secondary third-degree AV blocks , prolonged QT, hypertrophic Chetan myopathy, severe pulmonic stenosis, pulmonary arterial hypertension, atrial myxomas, aortic stenosis, valvular failure, alcohol consumption, adrenal insufficiency, drug effects from things like antidepressants, antihypertensive agents like beta blockers, vasodilators including calcium channel blockers and nitrates, autonomic insufficiency. []Patient presented with exertional syncope with history of prior CVA, hypertension hyperlipidemia by concern is that with his prior history of multiple cardiovascular issues patient really really benefit from risk stratification and a stress test here as an outpatient through the emergency room secondary to his symptoms. Although he demonstrates no heart injury at this time based on EKG and troponin given the duration of his symptoms are not time is now last between his symptoms and the tests to truly rule out heart damage. He truly has likely heart disease although has not been characterized by her test at this time. Email Designer note: Internal medicine physician Dr. Li Email Designer called at of the service paged 9:30 AM Consult called back at 9:35 AM Discussed the case I presented and they agreed with admission. Time of acceptance 9:35 AM Impression: Exertional syncope, hypertension. Dragon Disclaimer Dragon Disclaimer This electronic medical record was generated, in whole or in part, using a voice recognition dictation system. Departure Departure Impression: Primary Impression: Syncope Disposition: ADMITTED INPATIENT Admitting Physician: Veena Li Condition: GUARDED Referrals: VEENA LI MD (PCP) ALKA RAMIREZ MD Feb 21, 2017 08:16
--- NOTE | 2017-02-21 08:19 | RAD ---
Portable chest, 02/21/2017: History: Syncope Comparison is made to a study from 06/21/2011. The heart size and pulmonary vascularity are normal. The lungs are clear. There is no evidence of pleural fluid. IMPRESSION: No acute cardiopulmonary abnormality is detected.
[2017-02-21 08:38] LABS: BASO # 0.1 x10^3/uL (0.0-0.2); BASO % 1 % (0-3); EOS % 4 % (0-3); HEMATOCRIT 40.3 % (39.0-53.0); HEMOGLOBIN 13.9 g/dL (13.0-17.5); LYMPH # 2.1 x10^3/uL (1.0-4.8); LYMPH % 28 % (24-48); MEAN CORPUSCULAR HEMOGLOBIN 33 pg (25-35); MEAN CORPUSCULAR HGB CONC 34 g/dL (31-37); MEAN CORPUSCULAR VOLUME 96 fL (79-100); MONO % 7 % (0-9); NEUT % 61 % (31-73); PLATELET COUNT 225 x10^3/uL (140-400); RED CELL DISTRIBUTION WIDTH 13.5 % (11.5-14.5); WHITE BLOOD COUNT 7.7 x10^3/uL (4.0-11.0)
[2017-02-21 08:43] LABS: CALCIUM 8.8 mg/dL (8.5-10.1); CREATININE 1.5 mg/dL (0.7-1.3); POTASSIUM 3.7 mmol/L (3.5-5.1)
[2017-02-21 08:50] LABS: ALBUMIN 3.6 g/dL (3.4-5.0); DIRECT BILIRUBIN 0.1 mg/dL (0.0-0.2); MAGNESIUM 2.2 mg/dL (1.8-2.4); TOTAL BILIRUBIN 0.2 mg/dL (0.2-1.0); TOTAL PROTEIN 7.7 g/dL (6.4-8.2)
--- NOTE | 2017-02-21 08:50 | EKG ---
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
[2017-02-21 08:57] LABS: CKMB MASS 2.6 ng/mL (0.0-3.6)
[2017-02-21] MEDS: IV NORMAL SALINE 1000ML BAG 1,000 ML IV SCH ×2 (09:35→17:07)
[2017-02-21 09:39] LABS: BACTERIA,URINE 0 /HPF (0-FEW); BILIRUBIN,URINE NEGATIVE (NEG); GLUCOSE,URINE NEGATIVE (NEG); NITRITE,URINE NEGATIVE (NEG); PH,URINE 6.5; PROTEIN,URINE NEGATIVE (NEG-TRACE); UROBILINOGEN,URINE 0.2 mg/dL (0.2 mg/dL); WBC,URINE 0 /HPF (0-4)
[2017-02-21] MEDS ORDERED: ONDANSETRON PF 4 MG/2 ML VIAL. IV PRN (09:45)
[2017-02-21] MEDS ORDERED: fentaNYL PF VIAL 100 MCG/2 ML VIAL IV PRN (09:45)
[2017-02-21 12:00] VITALS: BP 129/87
--- NOTE | 2017-02-21 13:49 | PDOC2 ---
SHUBHAM BARROW IMMIGRATION JUDGE 02/21/17 1349: CARDIAC CONSULT DATE OF CONSULT Date of Consult DATE: 02/21/17 TIME: 13:38 REASON FOR CONSULT Reason for Consult: Exertional Syncope REFERRING PHYSICIAN Referring Physician: Dr. Knapp SOURCE Source: Chart review, Patient HISTORY OF PRESENT ILLNESS HISTORY OF PRESENT ILLNESS This is a 66 yo male who presented to near syncope event. [place] [employer] [place] when he began feeling dizzy. Patient reports he was over-exerting himself today. Started feeling bad. Sat down. [place] anxious and was having "vibrations" through his body. Vision started going dark. Friend was there at his side. Placed cold wash cloth on his neck, which improved his symptoms. Went to stand up, didn't have any strength in his legs. Decided to come into the ED for further evaluation and treatment. Denies any associated chest pain, palpitations, diaphoresis, or nausea/vomiting. No LOC. No recent illness/ fevers. PAST MEDICAL HISTORY Cardiovascular: HTN CENTRAL NERVOUS SYSTEM: CVA GI: GERD Heme/Onc: No pertinent hx Hepatobiliary: No pertinent hx Psych: Depression Musculoskeletal: Osteoarthritis Infectious disease: No pertinent hx ENT: No pertinent hx Renal/: No pertinent hx Endocrine: No pertinent hx Dermatology: No pertinent hx PAST SURGICAL HISTORY Past Surgical History: Hernia Repair, Other (cervical fusion) FAMILY HISTORY Family History: Coronary Artery Disease (both mother and father), Hypertension SOCIAL HISTORY Smoke: No ALCOHOL: none Lives: with Family CURRENT MEDICATIONS CURRENT MEDICATIONS Current Medications Medications (Trade) Dose Ordered Sig/Diana Route PRN Reason Start Time Stop Time Status Last Admin Dose Admin Aspirin (Children'S Aspirin) 324 mg 1X ONCE PO 02/21/17 08:15 02/21/17 08:16 DC 02/21/17 08:28 Sodium Chloride 1,000 ml @ 1,000 mls/hr Q1H IV 02/21/17 08:01 02/21/17 09:00 DC 02/21/17 08:30 Sodium Chloride (Normal Saline Flush) 10 ml QSHIFT PRN IV AFTER MEDS AND BLOOD DRAWS 02/21/17 08:15 02/21/17 08:29 ALLERGIES ALLERGIES: Coded Allergies: ciprofloxacin (Verified Allergy, Intermediate, Swelling, 10/03/16) BLISTERS OF PENIS ROS Review of System 14 point ROS conducted with pertinent positives noted above in HPI. PHYSICAL EXAM General: Alert, Oriented X3, Cooperative, No acute distress HEENT: Atraumatic, Mucous membr. moist/pink Lungs: Clear to auscultation, Normal air movement Heart: Regular rate, Normal S1, Normal S2, No murmurs, Other (no acute events noted on telemetry) Abdomen: Soft, No tenderness Extremities: No edema, Normal pulses Skin: No breakdown, No significant lesion Neuro: Normal speech, Sensation intact Psych/Mental Status: Mental status NL, Mood NL MUSCULOSKELETAL: Osteoarthritic changes both hands VITALS VITALS Vital Signs Date Time Temp Pulse Resp B/P (MAP) Pulse Ox O2 Delivery O2 Flow Rate FiO2 02/21/17 12:00 98.4 65 24 129/87 (101) 98 Room Air 98.4 LABS Lab: Laboratory Tests Test 02/21/17 08:15 02/21/17 09:10 White Blood Count 7.7 x10^3/uL (4.0-11.0) Red Blood Count 4.20 x10^6/uL (4.30-5.70) Hemoglobin 13.9 g/dL (13.0-17.5) Hematocrit 40.3 % (39.0-53.0) Mean Corpuscular Volume 96 fL (79-100) Mean Corpuscular Hemoglobin 33 pg (25-35) Mean Corpuscular Hemoglobin Concent 34 g/dL (31-37) Red Cell Distribution Width 13.5 % (11.5-14.5) Platelet Count 225 x10^3/uL (140-400) Neutrophils (%) (Auto) 61 % (31-73) Lymphocytes (%) (Auto) 28 % (24-48) Monocytes (%) (Auto) 7 % (0-9) Eosinophils (%) (Auto) 4 % (0-3) Basophils (%) (Auto) 1 % (0-3) Neutrophils # (Auto) 4.7 x10^3uL (1.8-7.7) Lymphocytes # (Auto) 2.1 x10^3/uL (1.0-4.8) Monocytes # (Auto) 0.5 x10^3/uL (0.0-1.1) Eosinophils # (Auto) 0.3 x10^3/uL (0.0-0.7) Basophils # (Auto) 0.1 x10^3/uL (0.0-0.2) Sodium Level 140 mmol/L (136-145) Potassium Level 3.7 mmol/L (3.5-5.1) Chloride Level 103 mmol/L (98-107) Carbon Dioxide Level 30 mmol/L (21-32) Anion Gap 7 (6-14) Blood Urea Nitrogen 15 mg/dL (8-26) Creatinine 1.5 mg/dL (0.7-1.3) Estimated GFR (Cockcroft-Gault) 57.0 Glucose Level 143 mg/dL (70-99) Calcium Level 8.8 mg/dL (8.5-10.1) Magnesium Level 2.2 mg/dL (1.8-2.4) Total Bilirubin 0.2 mg/dL (0.2-1.0) Direct Bilirubin 0.1 mg/dL (0.0-0.2) Aspartate Amino Transf (AST/SGOT) 20 U/L (15-37) Alanine Aminotransferase (ALT/SGPT) 39 U/L (16-63) Alkaline Phosphatase 69 U/L (46-116) Creatine Kinase 341 U/L (39-308) Creatine Kinase MB (Mass) 2.6 ng/mL (0.0-3.6) Creatine Kinase MB Relative Index 0.8 % (0-4) Troponin I Quantitative < 0.017 ng/mL (0.000-0.055) MV-Bmi-K-Type Natriuretic Peptide 33 pg/mL (0-124) Total Protein 7.7 g/dL (6.4-8.2) Albumin 3.6 g/dL (3.4-5.0) Lipase 109 U/L (73-393) Thyroid Stimulating Hormone (TSH) 3.126 uIU/mL (0.358-3.74) Urine Collection Type Unknown Urine Color Yellow Urine Clarity Clear Urine pH 6.5 Urine Specific [place] 1.015 Urine Protein Negative mg/dL (NEG-TRACE) Urine Glucose (UA) Negative mg/dL (NEG) Urine Ketones (Stick) Negative mg/dL (NEG) Urine Blood Negative (NEG) Urine Nitrite Negative (NEG) Urine Bilirubin Negative (NEG) Urine Urobilinogen Dipstick 0.2 mg/dL (0.2 mg/dL) Urine Leukocyte Esterase Negative (NEG) Urine RBC 1-2 /HPF (0-2) Urine WBC 0 /HPF (0-4) Urine Bacteria 0 /HPF (0-FEW) Urine Hyaline Casts Few /HPF Urine Mucus Slight /LPF ASSESSMENT/PLAN ASSESSMENT/PLAN 1. Near syncope 2. Hypertension; well controlled. 3. DDD, chronic cervical pain Recommendations Check echo to assess LV function/ rule out structural problems. If unrevealing, consider outpatient event monitor. Could consider outpatient MPI given cardiac risk factors. Supportive care Problems: MARGY BORGES MD 02/21/17 2219: CARDIAC CONSULT ALLERGIES ALLERGIES: Coded Allergies: ciprofloxacin (Verified Allergy, Intermediate, Swelling, 10/03/16) BLISTERS OF PENIS ASSESSMENT/PLAN ASSESSMENT/PLAN Pt. seen and examined. AGree with above SWITCHMAN SUPERVISOR note. Non-cardiac near syncope Normal exam. Supportive care. Will f/u prn. Problems: SHUBHAM BARROW APRN Feb 21, 2017 13:49 MARGY BORGES MD Feb 21, 2017 22:19
[2017-02-21 15:00] VITALS: BP 137/85
--- NOTE | 2017-02-21 15:37 | CARD ---
APPROVED REPORT EXAM: Two-dimensional and M-mode echocardiogram with Doppler and color Doppler. Other Information Quality : Average Rhythm : NSR INDICATION near syncope 2D DIMENSIONS RVDd3.5 (2.9-3.5cm)Left Atrium(2D)2.9 (1.6-4.0cm) IVSd0.9 (0.7-1.1cm)Aortic Root(2D)3.0 (2.0-3.7cm) LVDd4.9 (3.9-5.9cm)LVOT Diameter2.2 (1.8-2.4cm) PWd0.9 (0.7-1.1cm)LVDs3.5 (2.5-4.0cm) FS (%) 28.0 %SV59.7 ml LVEF(%)54.0 (>50%) Aortic Valve AoV Peak Hugh.98.5cm/sAoV VTI17.9cm AO Peak GR.3.9mmHgLVOT Peak Hugh.80.4cm/s LVOT VTI 16.96cmAO Mean GR.2mmHg CASIE (VMAX)2.00ri1OVS (VTI)3.45cm2 Mitral Valve MV E Lklqhetk00.8cm/sMV DECEL [id number] MV A Dtcvryba66.5cm/sMV UJH54ry E/A Ratio0.9MV A Mftyzzak67vt MVA (PHT)3.90cm2 TDI E/Lateral E'6.1E/Medial E'6.7 Pulmonary Valve PV Peak Eozhivqw730.1cm/sPV Peak Grad.5mmHg RVOT VTI15.4cm Tricuspid Valve TR P. Hjtgacrt727nu/sRAP PIFJPKIL0boOy TR Peak Gr.31iaCvMTZI56ghUs Pulmonary Vein S1 Eldlcyht75.8cm/sD2 Yejnholb18.5cm/s LEFT VENTRICLE The left ventricle is normal size. There is normal left ventricular wall thickness. Left ventricle sy stolic function is normal. The Ejection Fraction is 55-60%. There is normal LV segmental wall motion. The left ventricular diastolic function and filling is normal for age. There is no ventricular septa l defect visualized. RIGHT VENTRICLE The right ventricle is normal size. The right ventricular systolic function is normal. ATRIA The left atrium size is normal. The right atrium size is normal. The interatrial septum is intact wit h no evidence for an atrial septal defect or patent foramen ovale as noted on 2-D or Doppler imaging. AORTIC VALVE The aortic valve is normal in structure and function. The aortic valve is trileaflet. Doppler and Col or Flow revealed no significant aortic regurgitation. There is no significant aortic valvular stenosi s. MITRAL VALVE The mitral valve is normal in structure and function. There is no mitral valve stenosis. Doppler and Color Flow revealed no mitral valve regurgitation noted. TRICUSPID VALVE The tricuspid valve is normal in structure and function. Doppler and Color Flow revealed trace tricus pid regurgitation. The PA pressure was estimated at 29 mmHg. There is no tricuspid valve stenosis. PULMONIC VALVE The pulmonary valve is normal in structure and function. Doppler and Color Flow revealed no pulmonic valvular regurgitation. There is no pulmonic valvular stenosis. GREAT VESSELS The aortic root is normal in size. Normal pulmonary venous flow (Doppler). The IVC is normal in size and collapses >50% with inspiration. PERICARDIAL EFFUSION There is no evidence of significant pericardial effusion. Critical Notification Critical Value: No <Conclusion> Left ventricle systolic function is normal. The Ejection Fraction is 55-60%. There is normal LV segmental wall motion. Doppler and Color Flow revealed trace tricuspid regurgitation. The PA pressure was estimated at 29 mmHg. There is no evidence of significant pericardial effusion.
[2017-02-21] MEDS ORDERED: NON FORMULARY ITEM (Albuterol Sulfate (Proair Hfa Inhaler) 1 PUFF) INH PRN (16:30)
[2017-02-21] MEDS ORDERED: oxyCODONE/APAP 10/325 1 TAB TABLET PO PRN (16:30)
[2017-02-21] MEDS ORDERED: ALBUTEROL SULFATE 2.5 MG/3 ML NEBU. NEB PRN (16:45)
--- NOTE | 2017-02-21 17:06 | HP ---
ADMIT DATE: 02/21/2017 CHIEF COMPLAINT: Dizziness, near syncope. HISTORY OF PRESENT ILLNESS: The patient is a pleasant middle-aged male who has history of asthma and stroke with some right residual weakness. Basically, he went to the gym today. He apparently has been to the gym in sometime. He became dizzy and almost fainted. EMS was called. We did a workup here in the ER. We did not see any obvious cause of strokes or anything, but to be safe, we are going to admit the patient with consultation to Neurology. PAST MEDICAL HISTORY: Hypertension, stroke, chronic pain, arthritis, asthma. ALLERGIES: CIPRO. FAMILY HISTORY: Coronary artery disease. 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 He does not drink, smoke or take drugs. MEDICATIONS: Reviewed. REVIEW OF SYSTEMS: GENERAL: No history of weight change, weakness or fevers. SKIN: No bruising, hair changes or rashes. EYES: No blurred, double or loss of vision. NOSE AND THROAT: No history of nosebleeds, hoarseness or sore throat. HEART: No history of palpitations, chest pain or shortness of breath on exertion. LUNGS: Denies cough, hemoptysis, wheezing or shortness of breath. GASTROINTESTINAL: Denies changes in appetite, nausea, vomiting, diarrhea or constipation. GENITOURINARY: No history of frequency, urgency, hesitancy or nocturia. NEUROLOGIC: Denies history of numbness, tingling, tremor or weakness. PSYCHIATRIC: No history of panic, anxiety or depression. ENDOCRINE: No history of heat or cold intolerance, polyuria or polydipsia. EXTREMITIES: Denies muscle weakness, joint pain, pain on walking or stiffness. PHYSICAL EXAMINATION: VITAL SIGNS: Temperature afebrile, pulse 70, respirations 13, blood pressure 121/80, O2 sat 96% on room air. GENERAL: He is alert, cooperative, watching TV. HEART: Normal S1, S2. LUNGS: Clear. ABDOMEN: Soft. EXTREMITIES: No edema. SKIN: No rashes. PSYCHIATRIC: He seems stable. VASCULAR: Good capillary refill. ENDOCRINE: No thyromegaly. LYMPHATICS: No cervical nodes. HEMATOPOIETIC: No bruising. NEUROLOGICAL: He is alert and oriented, moving all extremities with no focal deficits. LABORATORY DATA: Hematology is normal. Electrolytes are normal other than a glucose of 143 and a creatinine of 1.5. His troponin is 0. CPK a little bit high at 341. TSH 3.126. ASSESSMENT AND PLAN: Near syncope episode. The patient has been admitted. We will consult Neurology, cardiac monitoring, resume home medicines. KAILEY FREEMAN DO DR: JORDON/hossein JOB#: [id number] / [id number]
[2017-02-21 19:55] VITALS: BP 123/83
[2017-02-21] MEDS: CYCLOBENZAPRINE 10 MG TABLET. PO SCH (20:27)
[2017-02-21] MEDS ORDERED: AMITRIPTYLINE HCL 25 MG TABLET. PO SCH (21:00)
[2017-02-21 22:14] VITALS: BP 120/67
[2017-02-22] MEDS: IV NORMAL SALINE 1000ML BAG 1,000 ML IV SCH (01:35)
[2017-02-22 02:22] VITALS: BP 122/78
[2017-02-22 02:27] LABS: CHOLESTEROL/HDL RATIO 1.7
[2017-02-22 07:00] VITALS: BP 122/66
[2017-02-22] MEDS ORDERED: amLODIPine BESYLATE 10 MG TABLET PO SCH (09:00)
[2017-02-22] MEDS ORDERED: FLUTICASONE 50MCG/NASAL SPRAY 16GM BOTTLE. NS SCH (09:00)
[2017-02-22] MEDS: CYCLOBENZAPRINE 10 MG TABLET. PO SCH (09:00)
[2017-02-22] MEDS ORDERED: LISINOPRIL 20 MG TABLET PO SCH (09:00)
[2017-02-22 11:00] VITALS: BP 127/77
--- NOTE | 2017-02-22 12:27 | PDOC3 ---
Discharge Summary Visit Information Date of Admission: Feb 21, 2017 Date of Discharge: Feb 22, 2017 Admitting Diagnosis Comment: pre syncope, normal echo Final Diagnosis Problems Medical Problems: (1) Syncope Status: Acute Brief Hospital Course Allergies Allergies Coded Allergies Type Severity Reaction Last Updated Verified ciprofloxacin Allergy Intermediate Swelling 10/03/16 Yes Vital Signs Vital Signs Date Time Temp Pulse Resp B/P (MAP) Pulse Ox O2 Delivery O2 Flow Rate FiO2 02/22/17 08:00 Room Air 02/22/17 07:00 98.6 75 18 122/66 (84) 94 98.6 Lab Results Laboratory Tests Test 02/21/17 08:15 02/21/17 09:10 02/21/17 13:55 02/21/17 21:40 White Blood Count 7.7 x10^3/uL (4.0-11.0) Red Blood Count 4.20 x10^6/uL (4.30-5.70) Hemoglobin 13.9 g/dL (13.0-17.5) Hematocrit 40.3 % (39.0-53.0) Mean Corpuscular Volume 96 fL (79-100) Mean Corpuscular Hemoglobin 33 pg (25-35) Mean Corpuscular Hemoglobin Concent 34 g/dL (31-37) Red Cell Distribution Width 13.5 % (11.5-14.5) Platelet Count 225 x10^3/uL (140-400) Neutrophils (%) (Auto) 61 % (31-73) Lymphocytes (%) (Auto) 28 % (24-48) Monocytes (%) (Auto) 7 % (0-9) Eosinophils (%) (Auto) 4 % (0-3) Basophils (%) (Auto) 1 % (0-3) Neutrophils # (Auto) 4.7 x10^3uL (1.8-7.7) Lymphocytes # (Auto) 2.1 x10^3/uL (1.0-4.8) Monocytes # (Auto) 0.5 x10^3/uL (0.0-1.1) Eosinophils # (Auto) 0.3 x10^3/uL (0.0-0.7) Basophils # (Auto) 0.1 x10^3/uL (0.0-0.2) Sodium Level 140 mmol/L (136-145) Potassium Level 3.7 mmol/L (3.5-5.1) Chloride Level 103 mmol/L (98-107) Carbon Dioxide Level 30 mmol/L (21-32) Anion Gap 7 (6-14) Blood Urea Nitrogen 15 mg/dL (8-26) Creatinine 1.5 mg/dL (0.7-1.3) Estimated GFR (Cockcroft-Gault) 57.0 Glucose Level 143 mg/dL (70-99) Calcium Level 8.8 mg/dL (8.5-10.1) Magnesium Level 2.2 mg/dL (1.8-2.4) Total Bilirubin 0.2 mg/dL (0.2-1.0) Direct Bilirubin 0.1 mg/dL (0.0-0.2) Aspartate Amino Transf (AST/SGOT) 20 U/L (15-37) Alanine Aminotransferase (ALT/SGPT) 39 U/L (16-63) Alkaline Phosphatase 69 U/L (46-116) Creatine Kinase 341 U/L (39-308) Creatine Kinase MB (Mass) 2.6 ng/mL (0.0-3.6) Creatine Kinase MB Relative Index 0.8 % (0-4) Troponin I Quantitative < 0.017 ng/mL (0.000-0.055) < 0.017 ng/mL (0.000-0.055) < 0.017 ng/mL (0.000-0.055) ZV-Ozw-R-Type Natriuretic Peptide 33 pg/mL (0-124) Total Protein 7.7 g/dL (6.4-8.2) Albumin 3.6 g/dL (3.4-5.0) Triglycerides Level 30 mg/dL (0-150) Cholesterol Level 157 mg/dL (0-200) LDL Cholesterol, Calculated 58 mg/dL (0-100) VLDL Cholesterol, Calculated 6 mg/dL (0-40) Non-HDL Cholesterol Calculated 64 mg/dL (0-129) HDL Cholesterol 93 mg/dL (40-60) Cholesterol/HDL Ratio 1.7 Lipase 109 U/L (73-393) Thyroid Stimulating Hormone (TSH) 3.126 uIU/mL (0.358-3.74) Urine Collection Type Unknown Urine Color Yellow Urine Clarity Clear Urine pH 6.5 Urine Specific [place] 1.015 Urine Protein Negative mg/dL (NEG-TRACE) Urine Glucose (UA) Negative mg/dL (NEG) Urine Ketones (Stick) Negative mg/dL (NEG) Urine Blood Negative (NEG) Urine Nitrite Negative (NEG) Urine Bilirubin Negative (NEG) Urine Urobilinogen Dipstick 0.2 mg/dL (0.2 mg/dL) Urine Leukocyte Esterase Negative (NEG) Urine RBC 1-2 /HPF (0-2) Urine WBC 0 /HPF (0-4) Urine Bacteria 0 /HPF (0-FEW) Urine Hyaline Casts Few /HPF Urine Mucus Slight /LPF Laboratory Tests Test 02/21/17 13:55 02/21/17 21:40 Troponin I Quantitative < 0.017 ng/mL (0.000-0.055) < 0.017 ng/mL (0.000-0.055) Brief Hospital Course Mr. Torres is a 66 old AA male, had exertional presyncope, no remarkable past medical. Echo ok, NO arrhhythmic events overnight, stabel to go home, no new meds, cleared from cards. Dc < 30 Discharge Information Condition at Discharge: Improved, Stable Disposition/Orders: D/C to Home Scheduled Amitriptyline Hcl (Amitriptyline Hcl), 25 MG PO HS, (Reported) Amlodipine Besylate (Amlodipine Besylate), 10 MG PO DAILY, (Reported) Cyclobenzaprine Hcl (Cyclobenzaprine Hcl), 10 MG PO TID, (Reported) Fluticasone Propionate (Flonase Allergy Relief), 2 SPRAYS NS DAILY, (Reported) Lisinopril (Lisinopril), 20 MG PO DAILY, (Reported) Scheduled PRN Albuterol Sulfate (Proair Hfa Inhaler), 1 PUFF INH PRN Q6HRS PRN for SHORTNESS OF BREATH, (Reported) Oxycodone/Apap 10-325 (Percocet 10-325 Mg Tablet), 1 TAB PO PRN Q6HRS PRN for PAIN, (Reported) Miscellaneous Medications Docusate Calcium (Stool Softener), 240 MG PO, (Reported) CLINT CHIANG MD Feb 22, 2017 12:27
== END 2017-02-22 13:25 | disposition home or self-care (01) ==
LOC: ER 07:58 → 2 SOUTH 09:33
PROVIDERS: ADMIT Internal Medicine; ATTEND Internal Medicine
DX: R55 Syncope and collapse (principal); J45.909 Unspecified asthma, uncomplicated; G89.29 Other chronic pain; I10 Essential (primary) hypertension; M19.90 Unspecified osteoarthritis, unspecified site; K21.9 Gastro-esophageal reflux disease without esophagitis; F32.9 Major depressive disorder, single episode, unspecified; E78.00 Pure hypercholesterolemia, unspecified; E78.5 Hyperlipidemia, unspecified; Z79.899 Other long term (current) drug therapy; M50.30 Other cervical disc degeneration, unspecified cervical region; Z82.49 Family history of ischemic heart disease and other diseases of the circulatory system; Z86.73 Personal history of transient ischemic attack (TIA), and cerebral infarction without residual deficits
CPT/HCPCS: 36415; 71010; 80048; 80061; 80076; 81001; 82553; 83690; 83735; 83880; 84443; 84484; 85025; 93005; 93306; 96360; 99285; G0378; J7030; G0379

== ENCOUNTER → 2017-03-13 | Outpatient (CLI) | payer MEDICARE ==
[2017-02-22 11:00] VITALS: BP 127/77
--- NOTE | 2017-03-13 17:13 | RAD ---
Cervical spine, 2 views, 03/13/2017: History: Left-sided pain, postop spinal fusion Comparison is made to a study from 11/15/2016. There is an anterior fixation plate attached to the C3 and C4 vertebral bodies via 2 screws at each level. A radiopaque disc spacer is present at the C3-4 level. There is an additional anterior fixation plate attached to the C4, C5 and C6 vertebral bodies via 2 screws at each level. There appears to be solid bony fusion at C4-5 and C5-6. The vertebral body alignment through this region is anatomic. There is moderate spurring at the C2-3 and C6-7 disc levels. There is facet joint arthropathy in the lower cervical spine. These findings appear unchanged. No new abnormality is detected. IMPRESSION: 1. Stable anterior spinal fusion as described above. 2. Moderate multilevel degenerative change. 3. No new abnormality is detected.
== END | disposition home or self-care (01) ==
LOC: RAD 11:43
PROVIDERS: ATTEND Neurological Surgery
DX: M47.892 Other spondylosis, cervical region (principal); Z98.1 Arthrodesis status
CPT/HCPCS: 72040

== ENCOUNTER → 2017-03-20 | Outpatient (CLI) | payer MEDICARE ==
[2017-02-22 11:00] VITALS: BP 127/77
[2017-03-20] MEDS: GADOBUTROL 10 MMOL/10 ML VIAL IV ONE (16:35)
--- NOTE | 2017-03-20 17:11 | RAD ---
MRI Cervical Spine with and without contrast History: Neck pain, bilateral arm radiculopathy, recent surgery Technique: Multiplanar, multi sequential pre and postcontrast MR imaging was performed of the cervical spine. Contrast: 10 cc Gadavist Comparison: October 02, 2016 Findings: There again has been anterior cervical fusion C3, C4, C5, C6. There is again osseous interbody fusion C4-5 and C5-6. Exam does not accurately evaluate integrity of hardware. Cervical cord caliber is within normal limits without associated enhancement. There is subtle increased T2 and STIR signal abnormality of the left cord at C3-4 probably due to mild myelomalacia. There is no significant marrow edema. Cervical vertebral body stature and AP alignment are maintained. C2-C3: There is again minimal disc osteophyte complex. Central canal is borderline 10 mm. There is mild uncovertebral degenerative change. There is overall mild neural foramina compromise bilaterally. C3-C4: Previously there was a greater degree of spinal stenosis at this level. Central canal now is minimally narrowed to about 8 mm. There are minimal posterior osteophytes. There are uncovertebral osteophytes, fairly severe left and moderate to severe right neural foramina compromise. C4-C5: There is moderate right and mild left neural foramina compromise some osteophytes. Central canal is adequate on the order of 10 mm. C5-C6: There is facet degenerative change. There is itfs-qy-xuccbiok left and fairly severe right neural foramina compromise due to osteophytes. C6-C7: There is buckling of the ligamentum flavum. There is again broad posterior bulge/protrusion. Central canal is narrowed to 6 to 7 mm, fairly similar. There is uncovertebral degenerative change. There is again severe neural foramina compromise bilaterally. C7-T1: There is again disc osteophyte complex with bulge/protrusions are eccentric to the lateral recesses. Central canal is minimally narrowed to about 9 mm with a relatively greater degree of lateral recess stenosis bilaterally. There is uncovertebral degenerative change. There is severe right and moderate left neural foramina compromise. Impression: 1. There is a lesser degree of spinal stenosis at C3-4 on this exam, overall mild narrowing at this level. There is similar spinal stenosis to 6 to 7 mm at C6-7, to a lesser degree at C7-T1. 2. There again has been anterior cervical fusion C3-C6, osseous interbody fusion C4-5 and C5-6. 3. There is multilevel significant cervical neural foramina compromise mostly from uncovertebral degenerative change, findings greatest bilaterally at C3-4, on the right at C5-C6, bilaterally at C6-7, and right greater than left at C7-T1. 4. There is likely mild myelomalacia of the left cord at C3-4. Electronically signed by: Rocky Mcdonald MD (03/20/2017 5:08 PM) [id number]
== END | disposition home or self-care (01) ==
LOC: MRI 14:47
PROVIDERS: ATTEND Neurological Surgery
DX: M48.02 Spinal stenosis, cervical region (principal); M54.12 Radiculopathy, cervical region; G95.89 Other specified diseases of spinal cord
CPT/HCPCS: 72156; A9585